=== PATIENT | female | born 1935 | race Caucasian/White ===

== ENCOUNTER 2016-03-21 15:31 | Observation (INO) | payer OTHER ==
[~2016-03-21] VITALS: Ht 172.7 cm; Wt 66.9 kg
[~2016-03-21 15:31] MED LIST: ADVIL200 MG PO; ASCORBIC ACID500 M3 PO; CARDIZEM CD,CA240 MG PO; COMBIVENT RESPIM4 GM IH; ELIQUIS5 MG PO; FISH OIL 1,0001 EAC7 PO; GABAPENTIN100 MG PO; LEVAQUIN500 MG PO; PANTOPRAZOLE SO40 MG PO; PREDNISONE10 MG PO; SINGULAIR10 MG PO; SPIRIVA RESPIMAT4 GM IH; ST. JOSEPH ASPI81 MG PO; SUPER B-50 COM1 EACH PO; SYMBICORT60 INHALAT IH; VENTOLIN HFA18 GM IH; VITAMIN D31000 UNI2 PO
[2016-03-21 16:52] LABS: HEMATOCRIT 34.2 % (36.0-46.0); MCH 30.5 PG (29.0-34.0); MCHC 32.2 G/DL (30.0-36.0); MCV 94.7 FL (83-99); MEAN PLAT.VOLUME 8.5 uM^3 (9.5-12.4); PLATELET COUNT 180 K/uL (156-360); RBC DIS.WIDTH-CV 13.4 % (11.8-14.6); RED BLOOD COUNT 3.61 M/uL (3.80-5.20); WHITE BLOOD COUNT 6.8 K/uL (4.1-10.2)
[2016-03-21 17:03] LABS: CHLORIDE 93 mEq/L (99-109); POTASSIUM 4.5 mEq/L (3.7-5.4); SODIUM 133 mEq/L (136-147)
[2016-03-21 17:05] LABS: GLUCOSE 95 mg/dL (70-99)
[2016-03-21 17:07] LABS: ANION GAP 8 MEQ/L (2-14)
[2016-03-21 17:09] LABS: GFR ESTIMATE (CALCULATED) > 59 mL/min/
[2016-03-21 17:10] LABS: UREA NITROGEN (BUN) 12 mg/dL (9-23)
[2016-03-21 20:32] LABS: EOSINOPHIL (%) 3.7 % (0-5); EOSINOPHIL COUNT 0.3 K/uL (0-0.3); IMMATURE GRANULOCYTE (%) 0.3 % (0.0-0.7); IMMATURE GRANULOCYTE COUNT 0.2 K/uL; LYMPHOCYTE COUNT 1.6 K/uL (1.0-2.8); MONOCYTE (%) 11.5 % (3-12); MONOCYTE COUNT 0.8 K/uL (0-0.8); NEUTROPHIL (%) 60.7 % (45-76); NEUTROPHIL COUNT 4.2 K/uL (1.8-6.4)
[2016-03-21 21:03] LABS: D-DIMER ELISA 0.64 mg/L FEU (< 0.57)
[2016-03-22] MEDS ORDERED: IPRATROPIU0.2 MG/1 M IH (00:04)
[2016-03-22] MEDS ORDERED: SPIRIVA RESPIMAT4 GM IH (00:04)
[2016-03-22] MEDS ORDERED: RANITIDINE HCL300 MG PO (00:04)
[2016-03-22] MEDS ORDERED: ALBUTEROL0.63 MG/3 IH (00:05)
[2016-03-22 01:59] VITALS: BP 149/67
[2016-03-22 03:34] LABS: AMYLASE 62 IU/L (1-118)
[2016-03-22 03:43] LABS: LIPASE 16 U/L (1.0-51.0)
[2016-03-22 03:48] LABS: TROP-I INTERPRETATION NEGATIVE; TROPONIN-I < 0.01 ng/mL (0.0-0.30)
[2016-03-22 03:57] LABS: ADD MIUA? YES; BILIRUBIN NEGATIVE; BLOOD TRACE; COLOR YELLOW ((YELLOW)); GLUCOSE (STRIP) NEGATIVE; KETONES 15; LEUKOCYTES LARGE; NITRITE NEGATIVE; PROTEIN (STRIP) NEGATIVE; SPECIFIC GRAVITY 1.027 (1.000-1.030); UROBILINOGEN 0.2 MG/DL (0.2-1.0)
[2016-03-22 04:27] LABS: RED BLOOD CELLS 0-5 /HPF (0-5); WHITE BLOOD CELLS 30-40 /HPF (0-5)
[2016-03-22 04:28] LABS: BACTERIA 2+; CASTS NONE SEEN /LPF; CRYSTALS NONE SEEN; EPITHELIAL CELLS 1+; MUCUS NONE SEEN; UCUL ADDED? YES
[2016-03-22 04:29] VITALS: BP 145/65
[2016-03-22 08:47] VITALS: BP 128/60
[2016-03-22 12:44] VITALS: BP 115/60
[2016-03-22] MEDS ORDERED: LEVOFLOXACIN750 MG PO ×2 (14:37→14:54)
[2016-03-22] MEDS ORDERED: PROTONIX40 MG PO (14:42)
== END 2016-03-22 16:01 | disposition home or self-care (01) ==
LOC: EME 15:31 → EDOF 03-22 00:42 → 5WEST 03-22 00:42
PROVIDERS: Hospitalist; Physician Assistant Medical
DX: R10.13 Epigastric pain (principal); N39.0 Urinary tract infection, site not specified; R94.31 Abnormal electrocardiogram [ECG] [EKG]; Z87.11 Personal history of peptic ulcer disease; Z87.19 Personal history of other diseases of the digestive system; I45.10 Unspecified right bundle-branch block; Z86.19 Personal history of other infectious and parasitic diseases; J44.9 Chronic obstructive pulmonary disease, unspecified; J96.12 Chronic respiratory failure with hypercapnia; J96.11 Chronic respiratory failure with hypoxia; I48.0 Paroxysmal atrial fibrillation; Z99.81 Dependence on supplemental oxygen; Z79.01 Long term (current) use of anticoagulants; Z87.891 Personal history of nicotine dependence; Z82.49 Family history of ischemic heart disease and other diseases of the circulatory system
CPT/HCPCS: 71020; 71275; 80048; 81003; 82150; 82948; 83690; 83880; 84145 90; 84484; 85025; 85027; 85379; 87040; 87070; 87086; 87205; 93005; 94640; 94640 76; 94799; 99202; 99281; 99285; G0378; J0360; J0692; J1644; J1956; J7050

== ENCOUNTER 2017-05-03 15:19 | Inpatient (IN) | payer OTHER ==
[~2017-05-03] VITALS: Ht 165.1 cm; Wt 59.4 kg
[~2017-05-03 15:19] MED LIST changes: +ALBUTEROL0.63 MG/3 IH; +IPRATROPIU0.2 MG/1 M IH; +LEVOFLOXACIN750 MG PO; +PROAIR HFA8.5 GM IH; +PROTONIX40 MG PO; +RANITIDINE HCL300 MG PO; -VENTOLIN HFA18 GM IH
[2017-05-03 16:42] LABS: APPEARANCE CLOUDY ((CLEAR)); BILIRUBIN NEGATIVE; BLOOD MODERATE; COLOR YELLOW ((YELLOW)); GLUCOSE (STRIP) NEGATIVE; KETONES NEGATIVE; LEUKOCYTES LARGE; NITRITE POSITIVE; PROTEIN (STRIP) 30; SPECIFIC GRAVITY 1.012 (1.000-1.030); UROBILINOGEN 0.2 MG/DL (0.2-1.0)
[2017-05-03 16:50] LABS: ALBUMIN 2.9 g/dL (3.2-4.8); CHLORIDE 99 mEq/L (99-109); PLATELET COUNT 159 K/uL (156-360); POTASSIUM 5.3 mEq/L (3.7-5.4); SODIUM 142 mEq/L (136-147)
[2017-05-03 16:52] LABS: GLUCOSE 96 mg/dL (70-99); TOTAL PROTEIN 5.7 g/dL (6.4-8.3)
[2017-05-03 16:54] LABS: TOTAL BILIRUBIN 0.3 mg/dL (0.0-1.0)
[2017-05-03 16:56] LABS: ALKALINE PHOSPHATASE 72 IU/L (3-129); CREATININE 1.2 mg/dL (0.6-1.3); GFR ESTIMATE (CALCULATED) 46 mL/min/
[2017-05-03 16:57] LABS: UREA NITROGEN (BUN) 51 mg/dL (9-23)
[2017-05-03 16:58] LABS: AST (GOT) 8 IU/L (2-34)
[2017-05-03 16:59] LABS: TROP-I INTERPRETATION NEGATIVE; TROPONIN-I 0.04 ng/mL (0.0-0.30)
[2017-05-03 16:59] LABS: ALT (GPT) 8 IU/L (3-49); CREATINE KINASE 14 IU/L (1-294); LIPASE 77 U/L (1.0-51.0)
[2017-05-03 17:01] LABS: UCUL ADDED? YES; WHITE BLOOD CELLS TNTC /HPF (0-5)
[2017-05-03 17:10] LABS: HEMATOCRIT 31.5 % (36.0-46.0); HEMOGLOBIN 8.8 G/DL (11.9-15.5); RED BLOOD COUNT 2.84 M/uL (3.80-5.20)
[2017-05-03 17:11] LABS: MCHC 27.9 G/DL (30.0-36.0); MCV 110.9 FL (83-99); RBC DIS.WIDTH-CV 13.6 % (11.8-14.6); RBC DIS.WIDTH-SD 55.3 % (39-53)
[2017-05-03 17:34] LABS: HEMATOLOGY COMMENT 1 SN
[2017-05-03] MEDS ORDERED: FOLIC ACID0.4 MG PO (21:19)
[2017-05-03] MEDS ORDERED: ONDANSETRON ODT8 MG PO (21:21)
[2017-05-03] MEDS ORDERED: DIGOXIN125 MCG PO (21:22)
[2017-05-03] MEDS ORDERED: MONTELUKAST SOD10 MG PO (21:22)
[2017-05-03] MEDS ORDERED: AMLODIPINE BESY10 MG PO (21:23)
[2017-05-03] MEDS ORDERED: RANITIDINE HCL300 MG PO (21:24)
[2017-05-03] MEDS ORDERED: ASPIRIN EC325 MG PO (21:24)
[2017-05-03] MEDS ORDERED: LO-DOSE ASPIRIN81 M2 PO (21:25)
[2017-05-03] MEDS ORDERED: TYLENOL EXTRA500 MG PO (21:26)
[2017-05-03 23:08] VITALS: BP 148/67
[2017-05-04 03:58] VITALS: BP 132/59
[2017-05-04 06:40] LABS: CHLORIDE 101 MEQ/L (99-109); GFR ESTIMATE (CALCULATED) 56 mL/min/; GLUCOSE 77 mg/dL (70-99); POTASSIUM 5.3 MEQ/L (3.7-5.4); SODIUM 146 MEQ/L (136-147); UREA NITROGEN (BUN) 54 mg/dL (9-23)
[2017-05-04 06:42] LABS: BASOPHIL (%) 0.2 % (0-1); EOSINOPHIL (%) 0 % (0-5); HEMATOCRIT 31.4 % (36.0-46.0); HEMOGLOBIN 8.5 G/DL (11.9-15.5); LYMPHOCYTE (%) 3.6 % (15-42); LYMPHOCYTE COUNT 0.8 K/uL (1.0-2.8); MCH 29.9 PG (29.0-34.0); MCHC 27.1 G/DL (30.0-36.0); MCV 110.6 FL (83-99); MONOCYTE (%) 3.6 % (3-12); MONOCYTE COUNT 0.8 K/uL (0-0.8); NEUTROPHIL (%) 91.6 % (45-76); NEUTROPHIL COUNT 20.8 K/uL (1.8-6.4); PLATELET COUNT 164 K/uL (156-360); RBC DIS.WIDTH-CV 13.3 % (11.8-14.6); RBC DIS.WIDTH-SD 53.9 % (39-53); RED BLOOD COUNT 2.84 M/uL (3.80-5.20); WHITE BLOOD COUNT 22.7 K/uL (4.1-10.2)
[2017-05-04 07:25] VITALS: BP 139/66
[2017-05-04 11:43] VITALS: BP 131/70
[2017-05-04 15:47] LABS: TROP-I INTERPRETATION NEGATIVE; TROPONIN-I 0.02 ng/mL (0.0-0.30)
[2017-05-04 16:12] VITALS: BP 148/67
[2017-05-04 19:14] VITALS: BP 152/65
[2017-05-04 23:23] VITALS: BP 154/68
[2017-05-05 04:18] VITALS: BP 154/69
[2017-05-05 07:25] VITALS: BP 163/72
[2017-05-05 07:48] LABS: HEMOGLOBIN 8.3 G/DL (11.9-15.5); MCH 30.6 PG (29.0-34.0); MCHC 27.7 G/DL (30.0-36.0); MCV 110.7 FL (83-99); PLATELET COUNT 143 K/uL (156-360); RBC DIS.WIDTH-CV 13.5 % (11.8-14.6); RBC DIS.WIDTH-SD 55.2 % (39-53); RED BLOOD COUNT 2.71 M/uL (3.80-5.20)
[2017-05-05 08:08] LABS: CHLORIDE 104 MEQ/L (99-109); GFR ESTIMATE (CALCULATED) 56 mL/min/; POTASSIUM 4.6 MEQ/L (3.7-5.4); SODIUM 148 MEQ/L (136-147); UREA NITROGEN (BUN) 50 mg/dL (9-23)
[2017-05-05 08:09] LABS: CARBON DIOXIDE (BICARBONATE) > 40.0 MEQ/L (20-31); GLUCOSE 120 mg/dL (70-99)
[2017-05-05 11:44] LABS: STOOL OCCULT BLD 1ST SPECIMEN NEGATIVE
[2017-05-05 12:01] VITALS: BP 141/73
[2017-05-05 16:28] VITALS: BP 163/70
[2017-05-05 19:33] VITALS: BP 153/69
[2017-05-05 23:31] VITALS: BP 125/60
[2017-05-06 04:06] VITALS: BP 152/64
[2017-05-06 06:31] LABS: HEMATOCRIT 27.9 % (36.0-46.0); HEMOGLOBIN 7.8 G/DL (11.9-15.5); MCV 107.3 FL (83-99); PLATELET COUNT 130 K/uL (156-360); RBC DIS.WIDTH-CV 13.2 % (11.8-14.6); RBC DIS.WIDTH-SD 51.7 % (39-53); WHITE BLOOD COUNT 16.3 K/uL (4.1-10.2)
[2017-05-06 07:12] LABS: CHLORIDE 96 MEQ/L (99-109); CREATININE 0.8 MG/DL (0.6-1.3); GFR ESTIMATE (CALCULATED) > 59 mL/min/; GLUCOSE 113 mg/dL (70-99); POTASSIUM 3.8 MEQ/L (3.7-5.4); SODIUM 145 MEQ/L (136-147); UREA NITROGEN (BUN) 38 mg/dL (9-23)
[2017-05-06 07:14] LABS: CARBON DIOXIDE (BICARBONATE) > 40.0 MEQ/L (20-31)
[2017-05-06 08:00] VITALS: BP 138/56
[2017-05-06 11:29] VITALS: BP 141/63
[2017-05-06 16:44] VITALS: BP 147/65
[2017-05-06 19:30] VITALS: BP 121/58
[2017-05-06 23:52] VITALS: BP 123/56
[2017-05-07 04:05] VITALS: BP 151/65
[2017-05-07 06:59] LABS: HEMATOCRIT 27.8 % (36.0-46.0); HEMOGLOBIN 7.8 G/DL (11.9-15.5); MCH 29.8 PG (29.0-34.0); MCHC 28.1 G/DL (30.0-36.0); MCV 106.1 FL (83-99); PLATELET COUNT 95 K/uL (156-360); RBC DIS.WIDTH-CV 13.2 % (11.8-14.6); RBC DIS.WIDTH-SD 50.7 % (39-53); RED BLOOD COUNT 2.62 M/uL (3.80-5.20); WHITE BLOOD COUNT 12.4 K/uL (4.1-10.2)
[2017-05-07 07:49] VITALS: BP 153/66
[2017-05-07 08:13] LABS: FERRITIN 552 NG/ML (10-291)
[2017-05-07 08:18] LABS: FOLIC ACID (FOLATE) 15.8 NG/ML (5.0-22.0)
[2017-05-07 08:27] LABS: THYROTROPIN (TSH) 6.1 MIU/L (0.4-5.5)
[2017-05-07 09:10] LABS: CHLORIDE 94 MEQ/L (99-109); CREATININE 0.6 MG/DL (0.6-1.3); GFR ESTIMATE (CALCULATED) > 59 mL/min/; GLUCOSE 92 mg/dL (70-99); IRON 37 MCG/DL (35-150); POTASSIUM 4.1 MEQ/L (3.7-5.4); SODIUM 145 MEQ/L (136-147); TRANSFERRIN SATUR. 39 % (20-55); UREA NITROGEN (BUN) 27 mg/dL (9-23)
[2017-05-07 09:12] LABS: CARBON DIOXIDE (BICARBONATE) > 40.0 MEQ/L (20-31)
[2017-05-07 11:45] VITALS: BP 144/76
[2017-05-07 15:42] VITALS: BP 138/66
[2017-05-07 19:16] VITALS: BP 150/67
[2017-05-08] VITALS: BP 152/65
[2017-05-08 06:27] LABS: BASOPHIL (%) 0.2 % (0-1); EOSINOPHIL (%) 1.3 % (0-5); EOSINOPHIL COUNT 0.2 K/uL (0-0.3); HEMATOCRIT 27.2 % (36.0-46.0); HEMOGLOBIN 7.6 G/DL (11.9-15.5); IMMATURE GRANULOCYTE (%) 1.1 % (0.0-0.7); LYMPHOCYTE (%) 5.9 % (15-42); LYMPHOCYTE COUNT 0.7 K/uL (1.0-2.8); MCH 29.2 PG (29.0-34.0); MCHC 27.9 G/DL (30.0-36.0); MCV 104.6 FL (83-99); MONOCYTE (%) 5.6 % (3-12); MONOCYTE COUNT 0.6 K/uL (0-0.8); NEUTROPHIL (%) 85.9 % (45-76); NEUTROPHIL COUNT 9.7 K/uL (1.8-6.4); PLATELET COUNT 83 K/uL (156-360); RBC DIS.WIDTH-CV 13.3 % (11.8-14.6); RBC DIS.WIDTH-SD 51.3 % (39-53); WHITE BLOOD COUNT 11.3 K/uL (4.1-10.2)
[2017-05-08 06:57] VITALS: BP 153/68
[2017-05-08 07:01] LABS: CHLORIDE 93 MEQ/L (99-109); CREATININE 0.5 MG/DL (0.6-1.3); GFR ESTIMATE (CALCULATED) > 59 mL/min/; GLUCOSE 83 mg/dL (70-99); POTASSIUM 3.8 MEQ/L (3.7-5.4); SODIUM 145 MEQ/L (136-147); UREA NITROGEN (BUN) 23 mg/dL (9-23)
[2017-05-08 07:11] LABS: CARBON DIOXIDE (BICARBONATE) > 40.0 MEQ/L (20-31)
[2017-05-08 11:49] LABS: HEMATOCRIT 27.1 % (36.0-46.0); HEMOGLOBIN 7.9 G/DL (11.9-15.5); MCV 105.9 FL (83-99)
[2017-05-08 15:35] VITALS: BP 153/67
[2017-05-08 20:17] VITALS: BP 164/69
[2017-05-09 06:50] LABS: BASOPHIL (%) 0.1 % (0-1); EOSINOPHIL COUNT 0.1 K/uL (0-0.3); HEMATOCRIT 27.5 % (36.0-46.0); IMMATURE GRANULOCYTE (%) 1.2 % (0.0-0.7); LYMPHOCYTE (%) 6.8 % (15-42); LYMPHOCYTE COUNT 0.9 K/uL (1.0-2.8); MCH 30.3 PG (29.0-34.0); MCHC 29.1 G/DL (30.0-36.0); MCV 104.2 FL (83-99); MONOCYTE COUNT 0.8 K/uL (0-0.8); NEUTROPHIL (%) 84.9 % (45-76); NEUTROPHIL COUNT 10.7 K/uL (1.8-6.4); PLATELET COUNT 70 K/uL (156-360); RBC DIS.WIDTH-CV 13.4 % (11.8-14.6); RBC DIS.WIDTH-SD 49.8 % (39-53); RED BLOOD COUNT 2.64 M/uL (3.80-5.20); WHITE BLOOD COUNT 12.6 K/uL (4.1-10.2)
[2017-05-09 07:10] VITALS: BP 150/60
[2017-05-09 07:30] LABS: CHLORIDE 91 MEQ/L (99-109); CREATININE 0.7 MG/DL (0.6-1.3); GFR ESTIMATE (CALCULATED) > 59 mL/min/; POTASSIUM 3.3 MEQ/L (3.7-5.4); SODIUM 145 MEQ/L (136-147); UREA NITROGEN (BUN) 24 mg/dL (9-23)
[2017-05-09 07:32] LABS: CARBON DIOXIDE (BICARBONATE) > 40.0 MEQ/L (20-31); GLUCOSE 104 mg/dL (70-99)
[2017-05-09 08:12] LABS: BASE EXCESS 23.6 mEq/L (-3 to +3); BICARBONATE 51.2 mEq/L (22-26); CARBOXY HGB 0 % (0-5); COMMENTS - BLOOD GASES A+C+; DEVICE NC; METHEMOGLOBIN 0.6 % (0-1.5); O2 FLOW 3 L/MIN; PCO2 79 mm Hg (35-45); PO2 91 mm Hg (80-100); SITE RR; TOTAL RESP RATE 16 resp/min; pH 7.42 (7.35-7.45)
[2017-05-09 11:00] VITALS: BP 156/64
[2017-05-09] MEDS ORDERED: FERROUS SULFAT325 MG PO (14:29)
[2017-05-09] MEDS ORDERED: ARANESP40 MCG/0.4 SC (14:29)
[2017-05-14] MEDS ORDERED: DULCOLAX10 MG PR (11:20)
[2017-05-14] MEDS ORDERED: MILK OF MAGN PO (11:20)
[2017-05-14] MEDS ORDERED: ZOFRAN ODT4 MG PO (11:22)
[2017-05-14] MEDS ORDERED: ARANESP40 MCG/0.4 IV (11:25)
[2017-05-14] MEDS ORDERED: BREO ELLIPTA I1 EACH IH (11:26)
== END 2017-05-09 16:20 | DRG 689 ==
LOC: EME 15:19 → 5EAST 20:47 → EDOF 20:47 → ENRESERV 20:49 → 5EAST 22:09
PROVIDERS: Anesthesiology; Emergency Medicine; Hospitalist; Physician Assistant
DX: N39.0 Urinary tract infection, site not specified (principal); G93.41 Metabolic encephalopathy; R41.82 Altered mental status, unspecified; J96.02 Acute respiratory failure with hypercapnia; R41.0 Disorientation, unspecified; I46.9 Cardiac arrest, cause unspecified; J96.11 Chronic respiratory failure with hypoxia; R32 Unspecified urinary incontinence; J44.9 Chronic obstructive pulmonary disease, unspecified; J84.10 Pulmonary fibrosis, unspecified; K59.00 Constipation, unspecified; C67.9 Malignant neoplasm of bladder, unspecified; R53.1 Weakness; I44.1 Atrioventricular block, second degree; I48.0 Paroxysmal atrial fibrillation; D47.2 Monoclonal gammopathy; E88.09 Other disorders of plasma-protein metabolism, not elsewhere classified; E87.0 Hyperosmolality and hypernatremia; K21.9 Gastro-esophageal reflux disease without esophagitis; R62.7 Adult failure to thrive; R33.9 Retention of urine, unspecified; J84.112 Idiopathic pulmonary fibrosis; R60.0 Localized edema; D64.9 Anemia, unspecified; E86.0 Dehydration; R26.9 Unspecified abnormalities of gait and mobility; Z99.81 Dependence on supplemental oxygen; Z87.891 Personal history of nicotine dependence; Z79.82 Long term (current) use of aspirin; Z87.11 Personal history of peptic ulcer disease; Z92.3 Personal history of irradiation; Z92.21 Personal history of antineoplastic chemotherapy; Z68.21 Body mass index [BMI] 21.0-21.9, adult; Z90.49 Acquired absence of other specified parts of digestive tract; Z87.19 Personal history of other diseases of the digestive system; Z51.5 Encounter for palliative care
CPT/HCPCS: 36600; 70450; 71045; 74018; 80048; 80053; 81003; 82272; 82550; 82607; 82728; 82746; 82803; 83540; 83605; 83690; 84439; 84443; 84466; 84484; 85014; 85018; 85025; 85027; 87040; 87086; 93005; 94640 76; 94799; 99202; 99281; 99285; J0692; J0696; J0881; J1644; J1940; J2270; J7030; J7042; J7070

== ENCOUNTER 2017-05-17 11:59 | Emergency (ER) | payer OTHER ==
[~2017-05-17] VITALS: Ht 167.6 cm; Wt 57.4 kg
[~2017-05-17 11:59] MED LIST changes: +AMLODIPINE BESY10 MG PO; +ARANESP40 MCG/0.4 IV; +ARANESP40 MCG/0.4 SC; +ASPIRIN EC325 MG PO; +BREO ELLIPTA I1 EACH IH; +DIGOXIN125 MCG PO; +DULCOLAX10 MG PR; +FERROUS SULFAT325 MG PO; +FOLIC ACID0.8 MG PO; +LO-DOSE ASPIRIN81 M2 PO; +MILK OF MAGN PO; +MONTELUKAST SOD10 MG PO; +ONDANSETRON ODT8 MG PO; +TYLENOL EXTRA500 MG PO; +ZOFRAN ODT4 MG PO
[2017-05-17 14:11] LABS: APPEARANCE TURBID ((CLEAR)); BILIRUBIN NEGATIVE; BLOOD MODERATE; COLOR YELLOW ((YELLOW)); GLUCOSE (STRIP) NEGATIVE; KETONES NEGATIVE; LEUKOCYTES LARGE; NITRITE NEGATIVE; PROTEIN (STRIP) 100; UROBILINOGEN 0.2 MG/DL (0.2-1.0)
[2017-05-17 14:28] LABS: EPITHELIAL CELLS NONE SEEN /HPF; MUCUS NONE SEEN /LPF
[2017-05-17 14:30] LABS: WHITE BLOOD CELLS TNTC /HPF (0-5)
[2017-05-17 14:47] LABS: HEMOGLOBIN 8.8 G/DL (11.9-15.5); MCH 30.6 PG (29.0-34.0); MCHC 27.5 G/DL (30.0-36.0); PLATELET COUNT 128 K/uL (156-360); RBC DIS.WIDTH-CV 15.2 % (11.8-14.6); RBC DIS.WIDTH-SD 61.2 % (39-53); RED BLOOD COUNT 2.88 M/uL (3.80-5.20); WHITE BLOOD COUNT 9.6 K/uL (4.1-10.2)
[2017-05-17 14:49] LABS: MCV 111.1 FL (83-99)
[2017-05-17 14:59] LABS: CHLORIDE 96 mEq/L (99-109); SODIUM 143 mEq/L (136-147)
[2017-05-17 15:02] LABS: GLUCOSE 119 mg/dL (70-99); TOTAL PROTEIN 5.9 g/dL (6.4-8.3)
[2017-05-17 15:04] LABS: TOTAL BILIRUBIN 0.3 mg/dL (0.0-1.0)
[2017-05-17 15:05] LABS: ALKALINE PHOSPHATASE 76 IU/L (3-129); CREATININE 0.9 mg/dL (0.6-1.3); GFR ESTIMATE (CALCULATED) > 59 mL/min/
[2017-05-17 15:06] LABS: TROP-I INTERPRETATION NEGATIVE; TROPONIN-I < 0.01 ng/mL (0.0-0.30); UREA NITROGEN (BUN) 40 mg/dL (9-23)
[2017-05-17 15:07] LABS: AST (GOT) 11 IU/L (2-34)
[2017-05-17 15:08] LABS: ALT (GPT) 7 IU/L (3-49)
[2017-05-17 15:13] LABS: CARBON DIOXIDE (BICARBONATE) > 40.0 mEq/L (20-31); POTASSIUM 8.2 mEq/L (3.7-5.4)
[2017-05-17 15:37] LABS: BASOPHIL (%) 0.2 % (0-1); EOSINOPHIL (%) 0.4 % (0-5); IMMATURE GRANULOCYTE (%) 0.4 % (0.0-0.7); LYMPHOCYTE COUNT 1.1 K/uL (1.0-2.8); MONOCYTE (%) 11.2 % (3-12); MONOCYTE COUNT 1.1 K/uL (0-0.8); NEUTROPHIL (%) 76.8 % (45-76); NEUTROPHIL COUNT 7.6 K/uL (1.8-6.4)
[2017-05-17 16:29] LABS: CARBOXY HGB 0.9 % (0-5); COMMENTS - BLOOD GASES C+; DEVICE NC; METHEMOGLOBIN 0.5 % (0-1.5); O2 FLOW 3 L/MIN; PCO2 > 126 mm Hg (35-45); PO2 236 mm Hg (80-100); SITE RR
[2017-05-17 16:30] LABS: pH 7.18 (7.35-7.45)
[2017-05-17 16:50] LABS: CHLORIDE 98 mEq/L (99-109); SODIUM 145 mEq/L (136-147)
[2017-05-17 16:52] LABS: GLUCOSE 122 mg/dL (70-99)
[2017-05-17 16:55] LABS: CARBON DIOXIDE (BICARBONATE) > 40.0 mEq/L (20-31); POTASSIUM 7.5 mEq/L (3.7-5.4)
[2017-05-17 16:56] LABS: CREATININE 0.8 mg/dL (0.6-1.3); GFR ESTIMATE (CALCULATED) > 59 mL/min/; UREA NITROGEN (BUN) 37 mg/dL (9-23)
[2017-05-17] MEDS ORDERED: ARANESP40 MCG/0.4 IV (20:45)
[2017-05-17] MEDS ORDERED: CITRATE OF MAG296 ML PO (20:48)
[2017-05-17] MEDS ORDERED: SYMBICORT60 INHALAT IH (20:51)
[2017-05-17 21:26] VITALS: BP 143/55
== END 2017-05-17 21:28 | disposition hospice, home (50) ==
LOC: EME 11:59
PROVIDERS: Emergency Medicine
DX: R06.89 Other abnormalities of breathing (principal); E87.5 Hyperkalemia; N13.30 Unspecified hydronephrosis; N39.0 Urinary tract infection, site not specified; C67.9 Malignant neoplasm of bladder, unspecified; Z51.5 Encounter for palliative care; Z66 Do not resuscitate; Z79.82 Long term (current) use of aspirin; J45.909 Unspecified asthma, uncomplicated; I44.0 Atrioventricular block, first degree; Z87.891 Personal history of nicotine dependence
CPT/HCPCS: 36600; 71045; 74176; 80048 91; 80053; 81003; 82140; 82803; 83605; 84484; 85025 GA; 85027; 87040; 87086; 93005; J2543; J7030